=== PATIENT | male | born 1970 | race Caucasian/White ===

== ENCOUNTER 2023-05-02 08:36 | Emergency (ER) | payer OTHER, SELFPAY ==
--- NOTE | ~2023-05-02 | XR_ITS ---
XR elbow RT min 3V DATE: 05/02/2023 09:03 INDICATION: Posterior pain and swelling for 2 days. No known injury. TECHNIQUE: 4 views COMPARISON: None FINDINGS: Approximately 3 x 6 mm dorsal olecranon process spur. There is spurring of the coronoid process. There is elevation of the anterior and posterior fat pads consistent with elbow joint effusion. No fracture or dislocation, periosteal reaction or bone destruction is detected. IMPRESSION: Elbow joint effusion; no fracture or dislocation is evident Dorsal olecranon process spur and coronoid process spurring Reviewed, dictated and finalized at location [facility]. [facility]
[2023-05-02 08:44] VITALS: BP 157/91; PULSE 93; RESP 20; TEMP 37.3; O2SAT 100
--- NOTE | 2023-05-02 08:47 | ED.EXTPRO ---
HPI - Extremity Problem General Chief complaint: Extremity Problem,Nontraumatic Stated complaint: right Elbow pain Time Seen by Provider: 05/02/23 08:55 Source: patient, RN notes reviewed and old records reviewed Mode of arrival: ambulatory Limitations: no limitations History of Present Illness HPI Narrative: 52 year old male who presents to [facility] care with complaints of pain to his right elbow since Monday with swelling and warmth to his elbow. Patient reports no injury to his right elbow, is unable to straighten his right arm out due to pain with pain along posterior aspect of right elbow,described as soreness and aching. Patient is right hand dominant. Patient has been taking Ibuprofen and using Voltaren ointment to his elbow for the pain. Patient has not used any ice to the elbow, has not had any acute fevers. MD Complaint: extremity pain, extremity swelling and joint swelling (right elbow) Onset (ago): day(s) (day 3 of symptoms) Location: right and elbow Severity scale (1-10): 6 Quality: aching Exacerbating factors: range of motion and other (movement) Related Data Home Medications Medication Instructions Recorded Confirmed No Home Medications 05/02/23 05/02/23 Allergies Allergy/AdvReac Type Severity Reaction Status Date / Time No Known Allergies Allergy Verified 05/02/23 09:07 Review of Systems Review of Systems: CONSTITUTIONAL: Denies acute fever, chills, or sweats. EYES: Denies visual changes, redness, or discharge. ENT: Denies rhinorrhea, congestion, sore throat, or otalgia. CARDIOVASCULAR: Denies chest pain, palpitations, or edema. RESPIRATORY: Denies cough or dyspnea. GASTROINTESTINAL: Denies abdominal pain, nausea, vomiting, or diarrhea. GENITOURINARY: Denies dysuria or hematuria. SKIN: Denies rash or itching. MUSCULOSKELETAL: Denies back pain,positive for right elbow pain and swelling, or myalgia. NEUROLOGIC: Denies headache, numbness, or weakness. PSYCHIATRIC: Denies anxiety or depression. All systems reviewed & are unremarkable except as noted in HPI and below PMFSH Surgical History Surgical History (Updated 05/02/23 @ 16:24 by Kathy Molina NP) H/O Achilles tendon repair left severed achilles tendon Social History Social History (Updated 05/02/23 @ 09:00 by Kathy Molina NP) Smoking status: Never smoker Alcohol intake: current Alcohol use details: social Substance use type: does not use Living arrangements: with family Gender identity (if verbalized by the patient): Male Comments At time of signature, agree with nursing past medical, surgical, social and family history. There is no relevant family history pertinent to the presenting complaint Exam Narrative: GENERAL: Well-appearing, well-nourished, and in no acute distress. HEAD: Normocephalic, atraumatic. EYES: PERRLA and EOMI. ENT: Nares clear, no rhinorrhea or epistaxis. Mucous membranes moist. NECK: Supple. no lymphadenopathy CHEST: Clear to auscultation. No respiratory distress. SAO2 100% on room air HEART: Regular rate and rhythm. No murmur heard. Normal peripheral pulses. ABDOMEN: Soft, nontender, nondistended, normal active bowel sounds. EXTREMITIES: Normal range of motion.with exception to right elbow which is swollen with pain, warmth since Monday day 3 today of symptoms. Patient has been taking Advil and using Voltaren ointment to his elbow as comfort measures, Patient is unable to straighten elbow due to pain, patient has edema, palpable to right elbow with some warmth to right elbow joint. Patient has strong right radial pulse with brisk capillary refill to right finger nail beds, no tingling or numbness to his right arm. SKIN: Warm, dry, no rash. NEURO: No focal deficits. Alert and oriented x3. Course Course Emergency Course: Patient is aware of diagnosis, understands and agrees to treatment plan.? Anticipatory guidance given.? Patient agrees to follow-up as directed and is aware of reasons
== END 2023-05-02 09:34 | disposition home or self-care (01) ==
PROVIDERS: Emergency Provider Registered Nurse
DX: M25.421 Effusion, right elbow (principal); M25.521 Pain in right elbow
CPT/HCPCS: 73080; 99213; G0463